=== PATIENT | male | born 1995 | race Caucasian/White ===

== ENCOUNTER 2016-10-14 22:01 | Emergency (ER) | payer OTHER ==
--- NOTE | ~2016-10-14 | CR63 ---
[facility] A Service of [facility] RADIOLOGY TEXT RESULTS PATIENT: KARINA BHANDARI LOCATION: SED : 95 UNIT #: [id number] AGE: [address]: Walter Sidhu MD SEX: M ORDER DR: [id number] [place] [id number] E MR#: [id number] Acc #: [id number] NAME: KARINA BHANDARI : 1995 SEX: M STUDY DATE/TIME: 10/14/2016 22:10 UNIT: SED ROOM: STUDY DESCRIPTION: CR Chest 2 View Attending Physician: Walter Sidhu M.D. Ordering Physician: Watler Sidhu M.D. Primary Care Physician: Ok Pickens M.D. MEDICAL IMAGING REPORT This report is preliminary unless electronic signature is present. EXAM PA and lateral views of the chest COMPARISON July 24, 2015 and December 28, 2008. INDICATION 20-year-old male with dyspnea and hematemesis on and off for the past 6 months with hematemesis today. FINDINGS Cardiomediastinal silhouette is within normal limits. When allowing for low lung volumes, the central bronchovascular structures are stable in appearance. There is no pleural effusion, pneumothorax or acute airspace disease. IMPRESSION No acute radiographic abnormality. When allowing for diminished lung volumes on the current study, the chest is stable from July 24, 2015. Dictated by... Kris Bowers M.D. THIS IS AN ELECTRONICALLY VERIFIED REPORT Kris Bowers M.D. at 10/19/2016 7:40 AM FAITH/casi TD: 10/15/2016 06:16 JOB #: [id number] MEDICAL IMAGING REPORT
[~2016-10-14 22:01] MED LIST: ALBUTEROL17 GM INH; BACTRIM DS TABL1 TA2 PO; BENZONATATE PO; EAR DROPS OP; HYDROCODON-ACE1 EAC5 PO; IBUPROFEN PO; IBUPROFEN800 MG PO; KEFLEX500 MG PO; LORTAB 10-5001 EACH PO; MOBIC PO; MOTRIN600 MG PO; NAPROXEN PO; NO MEDICATIONS; PREDNISONE10 MG/DOSE PO; SKELAXIN PO; TYLENOL #3 PO; VERMOX100 MG PO; VOLTAREN50 MG PO; [UNRECOGNIZED DRUG - OTHER] PO
[2016-10-14 22:12] LABS: INFLUENZA A NEG (NEG); INFLUENZA B NEG (NEG)
== END 2016-10-14 23:15 | disposition home or self-care (01) ==
LOC: SED 22:01
PROVIDERS: Emergency Medicine
DX: J11.1 Influenza due to unidentified influenza virus with other respiratory manifestations (principal)
CPT/HCPCS: 71020; 87651; 87804; 99283